=== PATIENT | male | born 2005 | race Two or more races ===

== ENCOUNTER 2024-06-04 10:05 | Day surgery (SDC) | payer BC, SELFPAY ==
[2024-06-03 10:45] VITALS: BMI 23.6
[2024-06-03 12:36] LABS: Basophils # (Auto) 0.1 Thou/mm3 (0.0-0.2); Basophils % (Auto) 1 % (0-2.5); Eosinophils # (Auto) 0.1 Thou/mm3 (0.0-0.5); Eosinophils % (Auto) 1 % (0-10); Hematocrit 45.7 % (41.0-53.0); Hemoglobin 15.7 g/dL (13.5-16.0); Immature Granulocytes % (Auto) 0 % (0-0); Immature Granulocytes Auto 0.02 Thou/mm3 (0.00-0.00); Lymphocytes # (Auto) 2.6 Thou/mm3 (1.0-5.0); Lymphocytes % (Auto) 32 % (10-50); Mean Corpuscular HGB Conc 34.4 g/dl (31.0-37.0); Mean Corpuscular Hemoglobin 29.1 pg (25.0-35.0); Mean Corpuscular Volume 85 fL (80-100); Monocytes # (Auto) 0.7 Thou/mm3 (0.0-0.8); Monocytes % (Auto) 8 % (0-12); Neutrophils # (Auto) 4.5 Thou/mm3 (1.8-7.7); Neutrophils % (Auto) 57 % (37-80); Nucleated Red Blood Cell % 0 /100 WBC (0); Platelet Count 228 Thou/mm3 (140-440); RDW Standard Deviation 39.3 fL (35.1-43.9)
[2024-06-03 12:38] LABS: Anion Gap 9 (7-16); BUN/Creatinine Ratio 11 Ratio (12-20); Blood Urea Nitrogen 12 mg/dL (9-23); Calcium 10.2 mg/dL (8.3-10.6); Carbon Dioxide 28.4 mMol/L (20.0-31.0); Chloride 102 mMol/L (98-107); Creatinine (Component) 1.1 mg/dL (0.6-1.3); Estimated Creatinine Clearance 104.5 mL/min (>60); Glucose 88 mg/dL (74-106); Osmolality,Calculated 276 (275-295); Potassium 4.2 mMol/L (3.4-5.1); Sodium 139 mMol/L (136-145); eGFR > 60 See Note
[2024-06-04] VITALS (7 sets, daily range): BP systolic 102–139; BP diastolic 63–100; PULSE 62–77; RESP 12–17; TEMP 36.6–36.8; O2SAT 97–100; BMI 24.5
--- NOTE | 2024-06-04 10:15 | CHAP ---
Visited briefly with patient giving encouragement and prayer. I then spoke with his grandmother in the waiting room.
--- NOTE | 2024-06-04 11:48 | ESOP_ITS ---
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 After administration of general endotracheal anesthesia, patient was placed in prone jackknife position. His lower back and perineum shaved and prepped and draped in standard surgical manner. Local anesthesia was administered. Avoid elliptical incision was made around the sinuses and pits. Dissection was deepened into soft tissue. The cyst along with underlying sinuses and pits were excised until healthy appearing soft tissue and skin encountered. The wound was washed and irrigated with Betadine and warm saline. Hemostasis achieved using electrocautery. Deep soft tissue reapproximated with interrupted sutures using 2-0 Vicryl. Subcutaneous tissue closed with interrupted sutures using 2-0 Vicryl and the incision was closed with 2-0 nylon in simple interrupted manner. Sterile pressure dressings applied. Patient tolerated procedure well. He was placed in supine position then extubated. He was breathing spontaneously and without difficulty and was transferred to postanesthesia care in stable condition. Instruments, needles and sponge counts were reported to be correct x 2. Anesthesia GETA and local Pathology / specimen Other (Pilonidal disease) Estimated Blood Loss 10 Condition Stable Disposition PACU Surgeon Clay West MD Surgical Staff Operation Date: 06/04/24 11:45 Case Staff PURCHASER: Cameron Narayanan RNwindow trimmer apprentice: Sri Muñiz
--- NOTE | 2024-06-04 11:51 | SUR.PHASEI ---
1151: Pt. arrived with oral airway in place, vitals stable, breathing unlabored, no signs of distress, dressing to buttocks CDI, no active bleed noted, report received from Konstantin HOUSTON and Cher PATIÑO.
--- NOTE | 2024-06-04 12:14 | SUR.PHASEI ---
1214: Report given to Corey PATIÑO. Pt. AAOx4, vitals stable, breathing unlabored, no complaint of pain or nausea, pt. sitting upright sipping on 7up, tolerating well.
--- NOTE | 2024-06-04 12:14 | SUR.PHASEI ---
1214: Report given to Corey PATIÑO. Pt. AAOx4, vitals stable, breathing unlabored, no complaint of pain or nausea, pt. sitting upright sipping on 7up, tolerating well.
--- NOTE | 2024-06-04 12:47 | SUR.PHASEII ---
pt awake and alert, breathing unlabored on room air. v/s stable. pt dressing to lower back cdi. pt able to ambulate to wheelchair with steady gait. pt able to drink fluids without difficulty swallowing or nausea/vomiting. d/c instructions given with grandmother Kaur in room, all questions answered. pt d/c via wheelchair with all belongings.
== END 2024-06-04 12:47 | disposition home or self-care (01) ==
PROVIDERS: PCP Family Medicine; Referring Provider Surgery; Visit Provider Surgery
PROC: (CPT 11771; principal; 2024-06-04 11:30)
DX: L05.91 Pilonidal cyst without abscess (principal)
CPT/HCPCS: 11771; 36415; 80048; 85025; A4217; A4649; J0690; J0736; J1100; J2250; J2405; J2704; J3010; J3490